=== PATIENT | male | born 1995 | race African-American/Black ===

== ENCOUNTER 2017-01-11 11:20 | Emergency (ER) | payer OTHER ==
[~2017-01-11] VITALS: Ht 185.4 cm; Wt 72.7 kg
[2017-01-11 14:58] VITALS: BP 120/68
[2017-01-11] MEDS ORDERED: IBUPROFEN 800 MG TABLET PO ONE (15:00)
== END 2017-01-11 14:59 | disposition home or self-care (01) ==
LOC: EMS 11:26
DX: S61.411A Laceration without foreign body of right hand, initial encounter (principal); W31.1XXA Contact with metalworking machines, initial encounter; Y93.89 Activity, other specified; Y92.89 Other specified places as the place of occurrence of the external cause; Y99.8 Other external cause status
CPT/HCPCS: 12001; 99284